=== PATIENT | male | born 1980 | race Caucasian/White ===

== ENCOUNTER 2019-08-08 17:59 | Emergency (ER) | payer OTHER ==
[~2019-08-08] VITALS: Ht 182.9 cm; Wt 106.6 kg
[2019-08-08] MEDS ORDERED: PAXIL CR37.5 MG PO (18:24)
[2019-08-08] MEDS ORDERED: SUBOXONE 8 MG-1 EAC1 SL (18:28)
[2019-08-08] MEDS ORDERED: OMEPRAZOLE20 MG PO (18:29)
[2019-08-08] MEDS ORDERED: ULTRAM50 MG PO (19:21)
== END 2019-08-08 19:43 | disposition home or self-care (01) ==
LOC: ED 17:59
DX: S82.832A Other fracture of upper and lower end of left fibula, initial encounter for closed fracture (principal); F17.200 Nicotine dependence, unspecified, uncomplicated; Z79.899 Other long term (current) drug therapy; X58.XXXA Exposure to other specified factors, initial encounter
CPT/HCPCS: 73610; 99283-25